=== PATIENT | female | born 1975 | race Caucasian/White ===

== ENCOUNTER 2018-09-15 17:24 | Emergency (ER) | payer OTHER ==
[~2018-09-15] VITALS: Ht 149.9 cm; Wt 45.4 kg
[~2018-09-15 17:24] MED LIST: AZO YEAST PLUS PO; Dulcolax Stool100 MG PO; OMEP20ER PO; PRAHYD1AE TOP; PROBIOTIC1 EAC1 PO; Poly-Iron150 MG PO
[2018-09-15 18:06] LABS: BASOPHILS ABSOLUTE AUTO 0.06 K/mm3 (0.00-0.23); BASOPHILS PERCENT AUTO 1 % (0-2); EOSINOPHILS ABSOLUTE AUTO 0.26 K/mm3 (0.00-0.68); EOSINOPHILS PERCENT AUTO 6 % (0-6); Hematocrit 31.6 % (33.0-51.0); Hemoglobin 7.7 g/dL (11.5-16.0); IMMATURE GRAN ABSOLUTE AUTO 0.02 K/mm3 (0.00-0.10); IMMATURE GRAN PERCENT AUTO 0 % (0-1); LYMPHOCYTES ABSOLUTE AUTO 1.19 K/mm3 (0.84-5.20); LYMPHOCYTES PERCENT AUTO 26 % (21-46); MONOCYTES ABSOLUTE AUTO 0.75 K/mm3 (0.16-1.47); MONOCYTES PERCENT AUTO 16 % (4-13); Mean Corpuscular HGB 17.7 pg (26.0-34.0); Mean Corpuscular HGB Conc 24.4 g/dL (31.5-36.5); Mean Corpuscular Volume 73 fL (80-100); Mean Platelet Volume 10.1 fL (9.1-12.4); NEUTROPHILS ABSOLUTE AUTO 2.33 K/mm3 (1.96-9.15); NEUTROPHILS PERCENT AUTO 51 % (41-73); Platelet Count 393 K/mm3 (150-400); RDW Coefficient Variation 18.2 % (11.7-14.2); Red Blood Cell Count 4.35 M/mm3 (3.80-5.20); White Blood Cell Count 4.61 K/mm3 (4.00-11.30)
[2018-09-15 18:11] LABS: Alanine Aminotransfer (ALT/SGP 23 U/L (12-78); Albumin, Blood 3.6 g/dL (3.4-5.0); Albumin/Globulin Ratio 1.1 (0.8-1.8); Alk Phos 80 U/L (50-136); Anion Gap 6 mmol/L (6-16); Aspartate Aminotrans (AST/SGOT 21 U/L (12-37); Bilirubin, Total 0.3 mg/dL (0.1-1.0); Blood Urea Nitrogen 9 mg/dL (8-24); CO2, Blood 27 mmol/L (21-32); Chloride, Blood 105 mmol/L (98-108); Creatinine, Blood 0.64 mg/dL (0.40-1.00); Globulin, Blood 3.4 g/dL (2.2-4.0); Glomerular Filtration Rate >60 (60-); Glucose, Blood 101 mg/dL (70-99); Potassium, Blood 3.6 mmol/L (3.5-5.5); Sodium, Blood 138 mmol/L (136-145)
[2018-09-15] MEDS ORDERED: Prevacid15 M2 PO (21:01)
== END 2018-09-16 03:19 | disposition home or self-care (01) ==
LOC: ER 17:24
PROVIDERS: Physician Assistant
DX: D62 Acute posthemorrhagic anemia (principal); K92.2 Gastrointestinal hemorrhage, unspecified; K21.9 Gastro-esophageal reflux disease without esophagitis; Z91.040 Latex allergy status; Z79.899 Other long term (current) drug therapy
CPT/HCPCS: 36415; 36430; 71045; 80053; 83690; 85025; 86850; 86900; 86901; 86923; 96374; 99283-25; C9113; P9016

== ENCOUNTER → 2019-05-18 | Outpatient (CLI) | payer OTHER ==
[~2019-05-18] MED LIST changes: +Prevacid15 M2 PO
== END | disposition home or self-care (01) ==
LOC: LAB SHORT 15:43 → LAB EV 15:43
DX: R21 Rash and other nonspecific skin eruption (principal); H92.11 Otorrhea, right ear
CPT/HCPCS: 87070; 87077; 87186; 87205

== ENCOUNTER 2019-06-05 07:59 | Day surgery (SDC) | payer OTHER ==
[~2019-06-05 07:59] MED LIST changes: +TRAZ50 PO; +VITAMIN D32000 UNI3 PO; +[UNRECOGNIZED DRUG - OTHER] PR
--- NOTE | 2019-06-05 08:37 | NUR ---
History, Chart, Medications and Allergies reviewed before start of procedure. Lungs clear T/O to Auscultation. Patient confirms NPO status and agrees with scheduled surgery. Pre-Op teaching done. Pt verbalizes understanding. PT HAS SEVERE AUTISM. SHE IS DIFFICULT TO UNDERSTAND AND MOM COMMUNICATES FOR HER. PT IS COOPERATIVE AND REDIRECTABLE.
--- NOTE | 2019-06-05 10:58 | NUR ---
INTO STEP VIA BED. PT ASKING FOR HER "MOM." IMMEDIATELY, RN WENT TO WAITING ROOM TO GET HER. VS WDL. GUAZE AND JOHANNY PAD/MADONNA PANTIES IN PLACE WITH SMALL AMOUNT OF DRAINAGE. PT GIVEN CRANBERRY JUICE AND PUDDING-TOLERATED WELL.
--- NOTE | 2019-06-05 11:27 | NUR ---
Discharge instructions reviewed with patient. Patient verbalizes understanding. Copy given to patient to take home.REVIEWED WITH PT MOTHER RX FOR PAIN MEDS GIVEN TO PT MOTHER.
--- NOTE | 2019-06-05 11:55 | NUR ---
Patient up to Ambulate independently. Gait steady.PT MOTHER HAS RX AND DISCHARGE INSTRUCTIONS ON HAND. Discharged via wheelchair to private car for ride home.
== END 2019-06-05 11:55 | disposition home or self-care (01) ==
LOC: ORSCMMR 07:59 → ORD 09:30 → ORSCMMR 11:55
PROVIDERS: Surgery
PROC: 06BY0ZC Excision of Hemorrhoidal Plexus, Open Approach (ICD-10-PCS; principal; 2019-06-05 09:30)
DX: K64.2 Third degree hemorrhoids (principal); K64.8 Other hemorrhoids; F84.0 Autistic disorder; Z79.899 Other long term (current) drug therapy
CPT/HCPCS: 84703; 88305; J2250; J2704; J3010; J7120

== ENCOUNTER → 2020-02-21 | Outpatient (CLI) | payer OTHER ==
[~2020-02-21] MED LIST changes: +Lasix20 MG PO; +PAPAYA
[2020-02-21 16:37] LABS: BASOPHILS ABSOLUTE AUTO 0.03 K/mm3 (0.00-0.23); BASOPHILS PERCENT AUTO 0 % (0-2); EOSINOPHILS ABSOLUTE AUTO 0.27 K/mm3 (0.00-0.68); EOSINOPHILS PERCENT AUTO 4 % (0-6); IMMATURE GRAN ABSOLUTE AUTO 0.08 K/mm3 (0.00-0.10); IMMATURE GRAN PERCENT AUTO 1 % (0-1); LYMPHOCYTES ABSOLUTE AUTO 1.06 K/mm3 (0.84-5.20); LYMPHOCYTES PERCENT AUTO 14 % (21-46); MONOCYTES ABSOLUTE AUTO 1.33 K/mm3 (0.16-1.47); MONOCYTES PERCENT AUTO 17 % (4-13); Mean Corpuscular HGB 16.2 pg (26.0-34.0); Mean Corpuscular HGB Conc 22.4 g/dL (31.5-36.5); Mean Corpuscular Volume 72 fL (80-100); Mean Platelet Volume 10.2 fL (9.1-12.4); NEUTROPHILS ABSOLUTE AUTO 4.99 K/mm3 (1.96-9.15); NEUTROPHILS PERCENT AUTO 64 % (41-73); NRBC ABSOLUTE 0.06 K/mm3 (0.00-0.02); NRBC Auto 0.8 /100 WBC (0.0-0.2); Platelet Count 385 K/mm3 (150-400); RDW Coefficient Variation 21.5 % (11.7-14.2); RDW Standard Deviation 53.6 fL (35.1-46.3); Red Blood Cell Count 2.41 M/mm3 (3.80-5.20); White Blood Cell Count 7.76 K/mm3 (4.00-11.30)
[2020-02-21 16:42] LABS: Anion Gap 11 mmol/L (6-16); Blood Urea Nitrogen 20 mg/dL (8-24); Bun/Creatinine Ratio 22.7 (12.0-20.0); CO2, Blood 23 mmol/L (21-32); Calcium, Blood 7.5 mg/dL (8.5-10.1); Chloride, Blood 107 mmol/L (98-108); Creatinine, Blood 0.88 mg/dL (0.40-1.00); Glomerular Filtration Rate >60 (60-); Glucose, Blood 102 mg/dL (70-99); Potassium, Blood 3.5 mmol/L (3.5-5.5); Sodium, Blood 141 mmol/L (136-145)
[2020-02-21 16:58] LABS: Hematocrit 17.4 % (33.0-51.0); Hemoglobin 3.9 g/dL (11.5-16.0)
== END ==
LOC: LAB EV 16:32 → LAB SHORT 16:32
PROVIDERS: Physician Assistant Surgical
DX: R22.43 Localized swelling, mass and lump, lower limb, bilateral (principal)
CPT/HCPCS: 80048; 85025

== ENCOUNTER 2020-04-26 14:15 | Emergency (ER) | payer OTHER ==
[~2020-04-26] VITALS: Ht 1165.9 cm; Wt 43.5 kg
[2020-04-26 14:59] LABS: BASOPHILS ABSOLUTE AUTO 0.04 K/mm3 (0.00-0.23); BASOPHILS PERCENT AUTO 1 % (0-2); EOSINOPHILS ABSOLUTE AUTO 0.41 K/mm3 (0.00-0.68); EOSINOPHILS PERCENT AUTO 6 % (0-6); Hematocrit 37.2 % (33.0-51.0); IMMATURE GRAN ABSOLUTE AUTO 0.01 K/mm3 (0.00-0.10); IMMATURE GRAN PERCENT AUTO 0 % (0-1); LYMPHOCYTES ABSOLUTE AUTO 0.87 K/mm3 (0.84-5.20); LYMPHOCYTES PERCENT AUTO 12 % (21-46); MONOCYTES PERCENT AUTO 13 % (4-13); Mean Corpuscular HGB 22.7 pg (26.0-34.0); Mean Corpuscular HGB Conc 26.9 g/dL (31.5-36.5); Mean Corpuscular Volume 84 fL (80-100); Mean Platelet Volume 8.9 fL (9.1-12.4); NEUTROPHILS ABSOLUTE AUTO 5.15 K/mm3 (1.96-9.15); NEUTROPHILS PERCENT AUTO 69 % (41-73); Platelet Count 311 K/mm3 (150-400); RDW Coefficient Variation 15.7 % (11.7-14.2); RDW Standard Deviation 48.5 fL (35.1-46.3); Red Blood Cell Count 4.41 M/mm3 (3.80-5.20); White Blood Cell Count 7.48 K/mm3 (4.00-11.30)
[2020-04-26 15:18] LABS: Alanine Aminotransfer (ALT/SGP 33 U/L (12-78); Albumin, Blood 3.3 g/dL (3.4-5.0); Alk Phos 60 U/L (50-136); Anion Gap 3 mmol/L (6-16); Aspartate Aminotrans (AST/SGOT 23 U/L (12-37); Bilirubin, Total 0.1 mg/dL (0.1-1.0); Blood Urea Nitrogen 15 mg/dL (8-24); Bun/Creatinine Ratio 19.7 (12.0-20.0); CO2, Blood 28 mmol/L (21-32); Calcium, Blood 7.6 mg/dL (8.5-10.1); Chloride, Blood 112 mmol/L (98-108); Creatinine, Blood 0.76 mg/dL (0.40-1.00); Globulin, Blood 3.4 g/dL (2.2-4.0); Glomerular Filtration Rate >60 (60-); Glucose, Blood 100 mg/dL (70-99); Sodium, Blood 143 mmol/L (136-145); Total Protein, Blood 6.7 g/dL (6.4-8.2)
== END 2020-04-26 18:48 | disposition home or self-care (01) ==
LOC: ER 14:15
PROVIDERS: Physician Assistant
DX: K64.9 Unspecified hemorrhoids (principal); K21.9 Gastro-esophageal reflux disease without esophagitis; Z86.2 Personal history of diseases of the blood and blood-forming organs and certain disorders involving the immune mechanism; Z91.040 Latex allergy status; Z79.899 Other long term (current) drug therapy
CPT/HCPCS: 36415; 80053; 85025; 99283

== ENCOUNTER 2020-10-12 12:18 | Day surgery (SDC) | payer OTHER | END 2020-10-12 18:40 | disposition home or self-care (01) | LOC: ATC 12:18 | DX: D64.9 Anemia, unspecified (principal); F84.0 Autistic disorder; F72 Severe intellectual disabilities; K21.9 Gastro-esophageal reflux disease without esophagitis; G51.0 Bell's palsy | CPT/HCPCS: 36415; 36430; 85025; 86850; 86900; 86901; 86923; J7050; P9016 ==

== ENCOUNTER → 2020-11-27 | Outpatient (CLI) | payer OTHER ==
[~2020-11-27] MED LIST changes: +CEFDINIR300 M4 PO; +Ondansetron Odt8 MG
[2020-11-27 15:44] LABS: BASOPHILS ABSOLUTE AUTO 0.03 K/mm3 (0.00-0.23); BASOPHILS PERCENT AUTO 1 % (0-2); EOSINOPHILS ABSOLUTE AUTO 0.04 K/mm3 (0.00-0.68); EOSINOPHILS PERCENT AUTO 1 % (0-6); Hemoglobin 10.4 g/dL (11.5-16.0); IMMATURE GRAN ABSOLUTE AUTO 0.03 K/mm3 (0.00-0.10); IMMATURE GRAN PERCENT AUTO 1 % (0-1); LYMPHOCYTES ABSOLUTE AUTO 0.43 K/mm3 (0.84-5.20); LYMPHOCYTES PERCENT AUTO 7 % (21-46); MONOCYTES ABSOLUTE AUTO 0.79 K/mm3 (0.16-1.47); MONOCYTES PERCENT AUTO 12 % (4-13); Mean Corpuscular HGB 21.9 pg (26.0-34.0); Mean Corpuscular HGB Conc 28.1 g/dL (31.5-36.5); Mean Corpuscular Volume 78 fL (80-100); Mean Platelet Volume 9.5 fL (9.1-12.4); NEUTROPHILS PERCENT AUTO 79 % (41-73); Platelet Count 243 K/mm3 (150-400); RDW Coefficient Variation 18.2 % (11.7-14.2); RDW Standard Deviation 50.4 fL (35.1-46.3); Red Blood Cell Count 4.74 M/mm3 (3.80-5.20); White Blood Cell Count 6.42 K/mm3 (4.00-11.30)
[2020-11-27 15:55] LABS: Albumin, Blood 3.4 g/dL (3.4-5.0); Albumin/Globulin Ratio 0.9 (0.8-1.8); Bilirubin, Total 0.4 mg/dL (0.1-1.0); Bun/Creatinine Ratio 20.5 (12.0-20.0); Calcium, Blood 7.7 mg/dL (8.5-10.1); Creatinine, Blood 1.12 mg/dL (0.40-1.00); Potassium, Blood 3.9 mmol/L (3.5-5.5); Total Protein, Blood 7.4 g/dL (6.4-8.2)
== END | disposition home or self-care (01) ==
LOC: LAB EV 15:40 → LAB SHORT 15:40
PROVIDERS: Physician Assistant Surgical
DX: Z32.01 Encounter for pregnancy test, result positive (principal); R10.9 Unspecified abdominal pain; R82.79 Other abnormal findings on microbiological examination of urine
CPT/HCPCS: 80053; 84702; 84703; 85025; 87086

== ENCOUNTER 2020-11-30 14:47 | Emergency (ER) | payer OTHER ==
[~2020-11-30] VITALS: Ht 149.9 cm; Wt 44.5 kg
[~2020-11-30 14:47] MED LIST changes: -CEFDINIR300 M4 PO; -Ondansetron Odt8 MG
[2020-11-30 15:37] LABS: Source, Urine Catheter
[2020-11-30] MEDS ORDERED: CEFDINIR300 M4 PO (15:38)
[2020-11-30] MEDS ORDERED: Ondansetron Odt8 MG (15:38)
[2020-11-30 15:44] LABS: Bilirubin, Urine Neg (Neg); Blood, Urine 4+ (Neg); Glucose Qualitative, Urine Neg (Neg); Ketones, Urine Neg (Neg); Leukocyte Esterase, Urine 3+ (Neg); Nitrite, Urine Neg (Neg); Protein, Urine 2+ (Neg); Specific Gravity, Urine 1.005 (1.003-1.022); Urobilinogen, Urine NORM (Normal)
[2020-11-30 15:56] LABS: Appearance, Urine Hazy (Clear); Color, Urine Pale Yellow (P-Yellow); White Blood Cells, Urine TNTC /hpf (0-5)
[2020-11-30 15:57] LABS: Bacteria Many /hpf; Squamous Epithelial Cells Few /hpf (Few)
== END 2020-11-30 16:20 | disposition home or self-care (01) ==
LOC: ER 14:47
PROVIDERS: Physician Assistant
DX: Z32.01 Encounter for pregnancy test, result positive (principal); K21.9 Gastro-esophageal reflux disease without esophagitis; Z91.040 Latex allergy status; Z79.899 Other long term (current) drug therapy
CPT/HCPCS: 36415; 81001; 84702; 84703; 86803; 87086; 99283; J3475

== ENCOUNTER 2021-05-07 08:31 | Day surgery (SDC) | payer OTHER ==
[~2021-05-07] VITALS: Ht 149.9 cm; Wt 47.2 kg
[~2021-05-07 08:31] MED LIST changes: +BISA5EC PO; +CEFDINIR300 M4 PO; +DOCU100 PO; +FERSU300 PO; +LANS30EC PO; +MIRALAX17 GM PO; +Ondansetron Odt8 MG; +PRAM.125 PO; +PROBIOTIC1 EA13 PO; +VITAMIN B6 PO; +Vitamin C100 M1 PO
--- NOTE | 2021-05-07 10:02 | NUR ---
05/07/21 [address] [facility] [address] [facility]ORAN IN ENDO1
--- NOTE | 2021-05-07 10:44 | NUR ---
Patient up to Ambulate independently. Gait steady. FAMILY/CAREGIVER REPORTS UNDERSTANDING OF DISCHARGE INSTRUCTIONS AND IS GIVING PT RIDE HOME. Discharged via wheelchair to private car for ride home.
== END 2021-05-07 10:44 | disposition home or self-care (01) ==
LOC: ORSCMMR 08:31 → ORD 09:45 → ORSCMMR 10:44
PROVIDERS: Surgery
PROC: 0DB48ZX Excision of Esophagogastric Junction, Via Natural or Artificial Opening Endoscopic, Diagnostic (ICD-10-PCS; principal; 2021-05-07 09:45)
DX: K22.70 Barrett's esophagus without dysplasia (principal); K44.9 Diaphragmatic hernia without obstruction or gangrene; K20.90 Esophagitis, unspecified without bleeding; F84.0 Autistic disorder; D64.9 Anemia, unspecified; K21.9 Gastro-esophageal reflux disease without esophagitis; Z79.899 Other long term (current) drug therapy
CPT/HCPCS: 88305; 88312; J2704; J7120

== ENCOUNTER 2025-02-19 04:30 | Day surgery (SDC) | payer OTHER ==
[2025-02-19] VITALS (7 sets, daily range): BP systolic 100–120; BP diastolic 52–76
[2025-02-19] MEDS ORDERED: DiphenhydrAMINE HCl 50 MG/ML 1ML Vial IV SCH (06:35)
[2025-02-19] MEDS ORDERED: NS 250 ML IV SCH (06:35)
== END 2025-02-19 11:50 | disposition home or self-care (01) ==
LOC: ATC 04:30
DX: D50.9 Iron deficiency anemia, unspecified (principal); R23.3 Spontaneous ecchymoses; F84.0 Autistic disorder; K90.9 Intestinal malabsorption, unspecified; K02.9 Dental caries, unspecified; Z79.899 Other long term (current) drug therapy
CPT/HCPCS: 36415; 36430; 86850; 86900; 86901; 86923; 96374; J1200; J7050; P9016